=== PATIENT | female | born 1980 | race Hispanic/Latino ===

== ENCOUNTER 2016-10-04 16:05 | Emergency (ER) | payer OTHER, MEDICARE ==
[~2016-10-04] VITALS: Ht 157.5 cm; Wt 96.4 kg
[~2016-10-04 16:05] MED LIST: ALBU8.5H4 IH; DIPH50C PO; DULO30CA PO; HYDR-3740 PO; HYDR-4003 PO; LORA1TAB PO; METO25TA6 PO; NITR100 PO; NORT25CA PO; PROM25TA14 PO; SULF-239 PO; SULF1TAB35 PO; TOPI-59 PO; WARF2.5T82 PO; WARF5TAB7 PO; [UNRECOGNIZED DRUG - CODE] PO
[2016-10-04 16:14] VITALS: BP 98/76; PULSE 85; RESP 16; O2SAT 95
--- NOTE | 2016-10-04 17:01 | ED.REPORT ---
HPI-General Illness Date of Service Oct 04, 2016 ED Provider: Jose Kruse MD Pt is a 36 y.o. female with a hx of spina bifida, hydrocephalus, recurrent UTI's , and "one working kidney" who presents to the ED c/o right flank pain. Pt was diagnosed with a UTI at on 09/30/2016 and was prescribed Cipro. She states that her sx have not improved on Cipro and she has since developed right sided flank pain and a headache. She states that the headache has not improved with both prochlorperazine and promethazine, last dose around 0800. She reports associated diaphoresis, chills, nausea, and vomiting that has since resolved. Pt states she is unable to identify urinary symptoms as she self catheterizes. She denies fever. Pt is worried she may have an obstructed shunt because of headache. Nursing Notes Stated Complaint: POSS UTI Chief Complaint: General Complaint Nursing Notes Reviewed: Yes ([employer] not reconciled EMR indicates warfarin use) Allergies: Coded Allergies: codeine (Verified Allergy, Severe, 10/04/16) latex (Verified Allergy, Severe, ANAPHYLAXIS, 10/04/16) metoclopramide (Verified Allergy, Severe, 10/04/16) asenapine maleate (Verified Allergy, Unknown, 10/04/16) pregabalin (Verified Allergy, Unknown, 02/26/16) Uncoded Allergies: tegaderm (Allergy, Intermediate, 09/05/10) Scheduled Amoxicillin/Clav K 875-125 mg (Augmentin 875-125 mg) 1 Each Tablet 1 TABLET PO BID Duloxetine (Cymbalta) 30 Mg Capsule.dr 30 MG PO BID Metoprolol Tartrate (Metoprolol Tartrate) 25 Mg Tablet 12.5 MG PO BID Nitrofurantoin Monohyd/M-Cryst (MacroBid) 100 Mg Capsule 100 MG PO BID Nortriptyline (Nortriptyline) 25 Mg Capsule 50 MG PO HS Sulfamethoxazole/Trimeth 400-80 mg (Bactrim) 1 Each Tablet 1 TABLET PO BID Sulfamethoxazole/Trimeth 800-160 mg (Bactrim DS 800-160 mg) 1 Each Tablet 1 TABLET PO BID Topiramate (Topiramate) 25 Mg Tablet 25 MG PO DAILY Warfarin Sodium (Warfarin Sodium) 5 Mg Tablet 5 MG PO DAILY EXC FR&TUE Warfarin Sodium (Warfarin Sodium) 2.5 Mg Tablet 2.5 MG PO FRI&TUE Scheduled PRN Acetaminophen/Pyrilam/Pamabrom (Pamprin Multi-Symptom Tab) 1 Each Tablet 1 EACH PO PRN PRN PRN For Pain Albuterol HFA (Albuterol HFA) 8.5 Gm Hfa.aer.ad 2 PUFF IH Q4-6H PRN PRN For Wheezing Diphenhydramine Hcl (Benadryl) 25 Mg Capsule 25 MG PO Q4 PRN PRN For Itching Hydrocodone-Acetaminophen 10-325 mg (Hydrocodone-Acetaminophen 10-325 mg) 1 Each Tablet 1 TABLET PO Q6H PRN PRN For Pain Hydrocodone-Acetaminophen 5-325 mg (Hydrocodone-Acetaminophen 5-325 mg) 1 Each Tablet 1 EACH PO Q8 PRN PRN For Pain Lorazepam (Lorazepam) 1 Mg Tablet 0.5-1 MG PO TID PRN PRN For Anxiety Promethazine (Promethazine) 25 Mg Tablet 12.5-25 MG PO Q6 PRN PRN For Nausea Promethazine (Promethazine) 25 Mg Tablet 25 MG PO Q6H PRN PRN For Nausea oxyCODONE-Acetaminophen 5-325 mg (oxyCODONE-Acetaminophen 5-325 mg) 1 Each Tablet 1-2 TAB PO Q6H PRN PRN For Pain General Time Seen by MD: 16:59 Chief Complaint Other (Flank pain, right) Hx Obtained From: Patient Arrived By: Walk-in Sudden in Onset?: Yes Context of Onset: Recent antibiotic use Location: : Head Quality: Painful Severity: Current: Severe Recent Healthcare: Recent doctor visit Past Medical History Past Medical History borderline clotting disorder, 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) Recurrent UTIs Spina bifida, Hydrocephalus, Short gut syndrome, "one working kidney" -right Bowel obstruction PTSD Reports: Hypertension Reports: Migraines Past Surgical History BLOWER ROOM ATTENDANT shunts bilaterally Bowel surgery Foot surgery Reports: Appendectomy, , Cholecystectomy Smoking History Never Smoker Social History Alcohol Use: "Social" Drug Use: Denies drug use, THC Ambulatory Status Independent Review of Systems Full Review of Systems Constitutional: Reports: Chills, Denies: Fever GI: Reports: Nausea, Vomiting Skin: Reports Diaphoresis Neurologic: Reports: Headache Complete sys rev & neg: except as marked. Physical Exam Vital Signs Vital Signs Date Time Temp Pulse Resp B/P Pulse Ox O2 Delivery O2 Flow Rate FiO2 10/04/16 16:14 36.4 85 16 98/76 95 Room Air Initial VS: Reviewed, Vital signs normal Respiratory: Breath sounds normal, Clear to auscultation, No respiratory distress Cardiovascular: Regular rate & rhythm, Heart sounds normal, Intact distal pulses Extremities: Vascular intact, Neuro intact Skin: Warm, Dry, No cyanosis Neurologic: Alert, Oriented, Nonfocal Psychiatric: Mood/affect normal, Behavior normal, Normal thought content General/Constitutional: Awake, Alert, No acute distress, Well appearing, Well developed, Well hydrated, Well nourished Alertness: Negative: Somnolent Head / Eyes: Atraumatic, Normocephalic, PERRL No tenderness over shunt Abdomen: Atraumatic, Soft, Non-tender, No guarding, No rebound, No distention Back: Atraumatic, Inspection NL, No CVA tenderness Interpretation & Diagnostics Urine Culture (09/30/2016): Antibiotic RSLT #1 Amoxicillin/Clavulanic Acid S Cefazolin R Cefepime S Ceftriaxone S Cefuroxime I Cephalothin S Ciprofloxacin S Gentamicin S Imipenem S Nitrofurantoin S Tetracycline S Tobramycin S Trimethoprim/Sulfa S Lab Results Interpretation Result Diagram: 10/04/16 1725 10/04/16 1725 Test 10/04/16 17:25 White Blood Count 9.4th/mm3 (3.8-10.1) Red Blood Count 5.08mil/mm3 (3.90-5.20) Hemoglobin 15.1g/dL (12.0-15.6) Hematocrit 43.0% (35.0-46.0) Mean Corpuscular Volume 84.6fL (81-100) Mean Corpuscular Hemoglobin 29.7pg (27.0-35.0) Mean Corpuscular Hemoglobin Concent 35.1% (32.0-37.0) Red Cell Distribution Width 13.4% (12.3-15.4) Platelet Count 267bil/L (150-400) Neutrophils (%) (Auto) 54.3% (40-74) Lymphocytes (%) (Auto) 35.0% (14-46) Monocytes (%) (Auto) 7.2% (4-12) Eosinophils (%) (Auto) 2.6% (0-5) Basophils (%) (Auto) 0.7% (0-3) Prothrombin Time 20.4sec (8.1-12.5) Prothromb Time International Ratio 1.88ratio Sodium Level 138mEq/L (134-144) Potassium Level 3.8mEq/L (3.5-5.2) Chloride Level 107mEq/L (97-108) Carbon Dioxide Level 18mmol/L (18-29) Blood Urea Nitrogen 11mg/dL (6-20) Creatinine 0.90mg/dL (0.57-1.00) Estimat Glomerular Filtration Rate 103mL/min (>59) Glucose Level 94mg/dL (60-99) Calcium Level 8.6mg/dL (8.5-10.1) Total Bilirubin 0.8mg/dL (0.0-1.2) Aspartate Amino Transf (AST/SGOT) 16U/L (0-50) Alanine Aminotransferase (ALT/SGPT) 19U/L (0-32) Alkaline Phosphatase 76U/L (25-150) Total Protein 6.8g/dL (6.4-8.4) Albumin 3.8g/dL (3.4-5.0) Lab Results Interpretation: CBC normal next and CMP normal UA pos at [facility] INR near therapeutic CT Head Interpretation IMPRESSION: 1. No acute intracranial findings. 2. Stable appearance of the bilateral ventriculoperitoneal shunt catheters. Specifically, no new hydrocephalus. Dictated by: Nanci Padron M.D. on 10/04/2016 at 17:42 Approved by: Nanci Padron M.D. on 10/04/2016 at 17:42 Re-Eval/Medical Decision Med Decision/Clinical Course This is a 36-year-old female with complex past medical history of chronic pain who self caths and is at risk for urinary tract infection and was diagnosed with urinary tract infection at urgent care on 1231. She was started empirically on Cipro, but continues to have purulent appearing urine, and is developed some right flank pain. She has migraines, but it did not respond to her regular migraine, that she reports she is concerned that it could be a BLOWER ROOM ATTENDANT shunt problem, or simply related to the urine/kidney infection. The patient's awake alert-she does not clinically appear toxic. She is not febrile and she has normal vital signs. She has no focal deficits. She has not drowsy, she has not had vomiting or nausea. Even that she has a BLOWER ROOM ATTENDANT shunt, a headache-and was concerned about failure a CT was both indicated and obtained - and was negative. Blood work was normal. Urine culture results indicate positive Citrobacter, with culture indicating sensitivity to Cipro-for the patient's describing a clinical failure. Ceftriaxone IV to which the organism is sensitive. While she underwent labs- which are normal. The patient continued to have ongoing pain-and I was never able to completely relieve her pain. She is on high-dose opiates and an oral Dilaudid at home and I am hesitant provide much in terms of additional medication, but in the end I wrote a prescription for 10 Percocet for supplemental use. I am not finding indication patient requires emergent hospitalization or admission, I am not finding evidence of obstruction findings to indicate that CT imaging of the abdomen and pelvis are warranted at this time. The plan is to change the antibiotics she is switched to Augmentin which the organism is also sensitive. She is discharged in stable condition. Source of Hx: Old records Time of Eval: 20:30 Re-Evaluation/Progress Note: Pt rechecked. Pt continues to experience flank pain. Discussed imaging results and plan for discharge, pt understands and agrees with plan. Differential Diagnosis: Positive: Urinary tract infection, Negative: Abdominal pain, Allergies, Diabetes mellitus, Drug dependence, Influenza, Neutropenia Counseled Regarding: Diagnosis, Lab results, Need for follow-up, When/why to return to ED Discharge & Departure Primary Impression: UTI (urinary tract infection) Additional Impressions: Headache Anticoagulated on Coumadin Disposition: Home Discharge Condition All VS Reviewed: Yes Condition: Stable Additional Instructions: 1. CT scan of the brain did not suggest any problems with a BLOWER ROOM ATTENDANT shunt. The headache is indeed likely in part due to the urine/kidney infection 2. Urine culture from urgent care was positive for "Citrobacter" bacteria. It does appear that it should be sensitive to Cipro, but given you are still having such severe symptoms the plan is to change antibiotics. You received an IV dose of ceftriaxone. 3. Starting tomorrow take Augmentin 875 mg twice a day for 14 days. 4. Continue your regular medications. Referrals: Jose Day MD (PCP) Scribe Attestation Portions of this note were transcribed by Adrian Purcell. I, Dr. Kruse personally performed the history, physical exam and medical decision-making; I reviewed and confirmed the accuracy of the information in the transcribed note. Signed by: Master Knight, 10/04/2016 and 2030. copies to: Jose Day MD, Matthew F MD Oct 04, 2016 17:01 ADRIAN PURCELL Oct 04, 2016 17:19
[2016-10-04] MEDS ORDERED: Promethazine Inj 25 MG in Dextrose 5%-Pha MIX 50 ML IV ONE (17:10)
[2016-10-04] MEDS ORDERED: HYDROmorphone 1 mg/mL Inj IVPUSH ONE ×2 (17:10→18:45)
[2016-10-04 17:39] LABS: BASOPHILS % (AUTO) 0.7 % (0-3); EOSINOPHILS % (AUTO) 2.6 % (0-5); MONOCYTES % (AUTO) 7.2 % (4-12); Mean Corpuscular Hemoglobin 29.7 pg (27.0-35.0); Mean Corpuscular Volume 84.6 fL (81-100); NEUTROPHILS % (AUTO) 54.3 % (40-74); Platelet Count 267 bil/L (150-400)
--- NOTE | 2016-10-04 17:44 | DRSVH ---
PROCEDURE: CT BRAIN WITHOUT CONTRAST ([id number]) INDICATIONS: [employer]MID [employer] ADMINISTRATOR shunt TECHNIQUE: Noncontrast 4.5 mm thick angled axial sections acquired from the foramen magnum to the vertex, with c oronal reformats. COMPARISON: None. FINDINGS: Image quality: Excellent. CSF spaces: Basal cisterns are patent. No extra-axial fluid collections. Ventricles are normal in size and shape. Bilateral ventriculoperitoneal shunt catheters are unchanged when compared with the study dated 07/12/16. No new hydrocephalus. Brain: No midline shift. No intracranial masses or hemorrhage. Brown-white matter interface is norm al. Skull and face: Calvarium and visualized facial bones are intact, without suspicious lesions. Sinuses: Visualized sinuses and mastoids are clear. IMPRESSION: 1. No acute intracranial findings. 2. Stable appearance of the bilateral ventriculoperitoneal shunt catheters. Specifically, no new hydr ocephalus. Dictated by: Nanci Padron M.D. on 10/04/2016 at 17:42 Approved by: Nanci Padron M.D. on 10/04/2016 at 17:42
[2016-10-04] MEDS ORDERED: cefTRIAXone Inj 2,000 MG in IV Premix 1 EACH IV ONE (17:45)
[2016-10-04] MEDS ORDERED: AMOX-366 PO (20:27)
[2016-10-04] MEDS ORDERED: OXYC1TAB24 PO (20:27)
[2016-10-04] MEDS ORDERED: oxyCODONE-Acetamin 5-325 mg Tablet PO ONE (20:30)
[2016-10-04 20:37] LABS: INR 1.88 ratio
[2016-10-04 21:10] VITALS: BP 112/80; PULSE 99; RESP 24; O2SAT 98
== END 2016-10-04 21:13 | disposition home or self-care (01) ==
LOC: SED 16:05
DX: N39.0 Urinary tract infection, site not specified (principal); R51 Headache; R10.9 Unspecified abdominal pain; R61 Generalized hyperhidrosis; R68.83 Chills (without fever); R11.2 Nausea with vomiting, unspecified; Q05.9 Spina bifida, unspecified; I10 Essential (primary) hypertension; Z88.5 Allergy status to narcotic agent; Z88.8 Allergy status to other drugs, medicaments and biological substances; Z91.040 Latex allergy status; Z87.440 Personal history of urinary (tract) infections; Z79.01 Long term (current) use of anticoagulants
CPT/HCPCS: 36415; 70450; 80053; 85025; 85610; 96365; 96375; 96376; 99285; J0696; J1170; J1200

== ENCOUNTER 2017-05-21 20:35 | Emergency (ER) | payer OTHER, MEDICARE ==
[~2017-05-21] VITALS: Ht 157.5 cm; Wt 96.4 kg
[~2017-05-21 20:35] MED LIST changes: +AMOX-366 PO; +OXYC1TAB24 PO
[2017-05-21 20:39] VITALS: BP 110/75; PULSE 89; RESP 16; O2SAT 98
--- NOTE | 2017-05-21 21:38 | ED.REPORT ---
HPI-Headache Date of Service May 21, 2017 ED Provider: Dr. Abreu Pt is a 36 year old female with a history of MANAGER POWER shunts bilaterally, who presents to the ED with concerns for a headache, dizziness, and blurred vision over the last couple of days. She reports that this has happened once in the past, where her shunt was obstructed. She reports that at that time, she had her shunt replaced. She states that she has been nauseated and vomiting all day today. She is currently on Warfarin for a hx of DVTs Nursing Notes Stated Complaint: POSS SHUNT OBSTRUCTION Chief Complaint: Headache Nursing Notes Reviewed: Yes Allergies: Coded Allergies: codeine (Verified Allergy, Severe, 05/21/17) latex (Verified Allergy, Severe, ANAPHYLAXIS, 05/21/17) metoclopramide (Verified Allergy, Severe, 05/21/17) asenapine maleate (Verified Allergy, Unknown, 05/21/17) pregabalin (Verified Allergy, Unknown, 05/21/17) Uncoded Allergies: tegaderm (Allergy, Intermediate, 09/05/10) Scheduled Amoxicillin/Clav K 875-125 mg (Augmentin 875-125 mg) 1 Each Tablet 1 TABLET PO BID Duloxetine (Cymbalta) 30 Mg Capsule.dr 30 MG PO BID Metoprolol Tartrate (Metoprolol Tartrate) 25 Mg Tablet 12.5 MG PO BID Nitrofurantoin Monohyd/M-Cryst (MacroBid) 100 Mg Capsule 100 MG PO BID Nortriptyline (Nortriptyline) 25 Mg Capsule 50 MG PO HS Sulfamethoxazole/Trimeth 400-80 mg (Bactrim) 1 Each Tablet 1 TABLET PO BID Sulfamethoxazole/Trimeth 800-160 mg (Bactrim DS 800-160 mg) 1 Each Tablet 1 TABLET PO BID Topiramate (Topiramate) 25 Mg Tablet 25 MG PO DAILY Warfarin Sodium (Warfarin Sodium) 5 Mg Tablet 5 MG PO DAILY EXC &TUE Warfarin Sodium (Warfarin Sodium) 2.5 Mg Tablet 2.5 MG PO FRI&TUE Scheduled PRN Acetaminophen/Pyrilam/Pamabrom (Pamprin Multi-Symptom Tab) 1 Each Tablet 1 EACH PO PRN PRN PRN For Pain Albuterol HFA (Albuterol HFA) 8.5 Gm Hfa.aer.ad 2 PUFF IH Q4-6H PRN PRN For Wheezing Diphenhydramine Hcl (Benadryl) 25 Mg Capsule 25 MG PO Q4 PRN PRN For Itching Hydrocodone-Acetaminophen 10-325 mg (Hydrocodone-Acetaminophen 10-325 mg) 1 Each Tablet 1 TABLET PO Q6H PRN PRN For Pain Hydrocodone-Acetaminophen 5-325 mg (Hydrocodone-Acetaminophen 5-325 mg) 1 Each Tablet 1 EACH PO Q8 PRN PRN For Pain Lorazepam (Lorazepam) 1 Mg Tablet 0.5-1 MG PO TID PRN PRN For Anxiety Promethazine (Promethazine) 25 Mg Tablet 12.5-25 MG PO Q6 PRN PRN For Nausea Promethazine (Promethazine) 25 Mg Tablet 25 MG PO Q6H PRN PRN For Nausea oxyCODONE-Acetaminophen 5-325 mg (oxyCODONE-Acetaminophen 5-325 mg) 1 Each Tablet 1-2 TAB PO Q6H PRN PRN For Pain General Time Seen by MD: 21:36 Chief Complaint Headache Hx Obtained From: Patient Arrived By: Walk-in Sudden in Onset?: Yes Onset Occurred: 9 - 12 hours ago Symptom Duration: Since onset Location: : Generalized Quality: Painful Severity: Current: Moderate Severity: Maximum: Severe Recent Healthcare: Recent doctor visit, Recent hospitalization Similar Sx Previous: Yes Past Medical History Past Medical History borderline clotting disorder, 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) Recurrent UTIs Spina bifida, Hydrocephalus, Short gut syndrome, "one working kidney" -right Bowel obstruction PTSD Reports: Hypertension Reports: Migraines Past Surgical History MANAGER POWER shunts bilaterally Bowel surgery Foot surgery Reports: Appendectomy, , Cholecystectomy Smoking History Never Smoker Social History Alcohol Use: "Social" Drug Use: Denies drug use, THC Ambulatory Status Independent Review of Systems Constitutional: Reports: Chills, Fever, Weakness - generalized, Denies: Malaise GI: Reports: Nausea, Vomiting, Denies: Abdominal pain, Constipation, Diarrhea Musculoskeletal: Denies: Back pain, Extremity pain, Neck pain Neurologic: Reports: Dizziness, Headache, Denies: Change LOC, Seizure, Syncope, Weakness Complete sys rev & neg: except as marked. Physical Exam Initial Vital Signs Vital Signs (First) Date Time Temp Pulse Resp B/P Pulse Ox O2 Delivery O2 Flow Rate FiO2 05/21/17 20:39 36.2 89 16 110/75 98 Room Air Initial VS: Reviewed ENT: Mucous membranes moist, Conjunctiva normal, No scleral icterus Respiratory: Breath sounds normal, Clear to auscultation, No respiratory distress Cardiovascular: Regular rate & rhythm, Heart sounds normal, Intact distal pulses Abdomen / GI: Soft, Non-tender, No guarding, No rebound, No distention Skin: Warm, Dry, No cyanosis General/Constitutional: Awake, Alert Distress / Hydration: Positive: Distress moderate Appearance / Presentation: Positive: Uncomfortable Head / Eyes: Atraumatic, Normocephalic Palpable bilateral shunts Neck: Atraumatic, Supple, No meningismus Neurologic: Oriented X3, Speech NL, No motor deficits, No sensory deficits, CN II - XII intact Interpretation & Diagnostics Lab Results Interpretation Result Diagram: 05/21/17 2251 05/21/17 2251 Test 05/21/17 22:51 05/21/17 22:52 White Blood Count 8.3th/mm3 (3.8-10.1) Red Blood Count 5.45mil/mm3 (3.90-5.20) Hemoglobin 15.9g/dL (12.0-15.6) Hematocrit 46.0% (35.0-46.0) Mean Corpuscular Volume 84.4fL (81-100) Mean Corpuscular Hemoglobin 29.2pg (27.0-35.0) Mean Corpuscular Hemoglobin Concent 34.6% (32.0-37.0) Red Cell Distribution Width 13.3% (12.3-15.4) Platelet Count 246bil/L (150-400) Neutrophils (%) (Auto) 44.8% (40-74) Lymphocytes (%) (Auto) 40.4% (14-46) Monocytes (%) (Auto) 11.1% (4-12) Eosinophils (%) (Auto) 2.5% (0-5) Basophils (%) (Auto) 1.1% (0-3) Prothrombin Time 10.3sec (8.1-12.5) Prothromb Time International Ratio 0.96ratio Sodium Level 139mEq/L (134-144) Potassium Level 4.3mEq/L (3.5-5.2) Chloride Level 104mEq/L (97-108) Carbon Dioxide Level 19mmol/L (18-29) Blood Urea Nitrogen 13mg/dL (6-20) Creatinine 1.06mg/dL (0.57-1.00) Estimat Glomerular Filtration Rate 85mL/min (>59) Glucose Level 98mg/dL (60-99) Calcium Level 9.8mg/dL (8.5-10.1) Total Bilirubin 1.0mg/dL (0.0-1.2) Aspartate Amino Transf (AST/SGOT) 21U/L (0-50) Alanine Aminotransferase (ALT/SGPT) 25U/L (0-32) Alkaline Phosphatase 78U/L (25-150) Total Protein 7.5g/dL (6.4-8.4) Albumin 4.4g/dL (3.4-5.0) Hold Oneil Top Tube Received (Received) CT Head Interpretation Conclusion: Multiple bilateral shunts, 2 on the right and one on the left. One scalp reservoir on each side, one of the right shunts is presumably detached, presumably the more superior entering right shunt without a corresponding scalp reservoir. No micki hydrocephalus but the ventricles are asymmetric, mildly larger on the right. 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 No hemorrhage, edema or midline shift I would be happy to compare to a prior exam if one is available Addendum: Prior exam from October 04, 2016 was received. The right lateral ventricle is large, the body of the right lateral ventricle was only about 6 mm at that time, now 1.1cm, and the right temporal horn was slitlike, now about 7.4 mm. Possibly a mild asymmetric right hydrocephalus Study: Head CT no contrast Interpretation / Wet Read by: Interpret - Radiologist Re-Eval/Medical Decision Med Decision/Clinical Course This is a very pleasant 36-year-old female who presents complaining that she has headache, vomiting blurred vision. For 2 days she has developed gradual onset headache with associated symptoms of nausea and vomiting. She states that her symptoms are very reminiscent of prior ventriculoperitoneal shunt failure. Her last shunt failure and revision was 14 years ago at [facility] in [place]. She denies fever. She denies neck stiffness. Currently she does not have any vision loss. On examination her vitals were normal and stable. Her neck was supple. I can feel the shunts in her neck and they feel normal to me. I could not appreciate papilledema. Her pupils are 2 mm equal and reactive. Cardiac was regular. Lungs are clear. GCS 15. Vital stable. CT scan is highly suspicious for the right shunt failing. She has mild right- sided hydrocephalus and her ventricles are far more prominent on the right than compared to a CT scan back in October. Assessment: MANAGER POWER shunt failure with mild hydrocephalus. Plan: We treated her symptomatically. She remained hemodynamically stable. I consulted with Dr. Ortiz at [facility]. We will transfer her via ambulance as soon as possible. Source of Hx: Old records Re-Evaluation/Progress : Time of Eval: 22:35 Re-Evaluation/Progress Note: Pt is rechecked and informed of her CT scan results and the plan to refer her to a neurologist. She understands and agrees, all questions are addressed. Consultation : Referral / Consult Name: [facility] Returned at: 23:26 Frankfurter Inspector: Will see patient, Agrees with plan Note: Accepts transfer. Spoke with Dr. Ortiz Counseled Regarding: Diagnosis, Lab results, Need for transfer Discharge & Departure Impression: Primary Impression: Shunt malfunction Encounter type: initial encounter Qualified Code: T85.618A - Breakdown ( mechanical) of other specified internal prosthetic devices, implants and grafts , initial encounter Additional Impression: Hydrocephalus Disposition: Transfer, Acute Care Facility Receiving Hospital: [facility]. Spoke with Dr. Ortiz Transfer Accepted at: 23:25 Transfer Reason: Higher level of care Spoke with: Specialty physician Patient Status: Stable Patient Informed: Yes Discharge Condition All VS Reviewed: Yes Condition: Stable Referrals: Jose Day MD (PCP) Crit Care Except Billable Proc Time Spent: 30-74 minutes (60 mins) Services Performed: Patient management by me, Time spent at bedside, Reviewing test results, Reviewing imaging, Discussing patient care, Documentation in record, Time with fam/surrogate Scribe Attestation Portions of this note were transcribed by Paige Gaytan. I, Dr. Abreu personally performed the history, physical exam and medical decision-making; I reviewed and confirmed the accuracy of the information in the transcribed note. Signed by: Master Contreras, 05/21/2017 1466 copies to: Jose Day MD, Todd P DO May 21, 2017 21:38 RORY GAYTAN May 21, 2017 21:49
[2017-05-21] MEDS ORDERED: HYDROmorphone 1 mg/mL Inj IM ONE (21:50)
[2017-05-21 22:54] LABS: BASOPHILS % (AUTO) 1.1 % (0-3); EOSINOPHILS % (AUTO) 2.5 % (0-5); MONOCYTES % (AUTO) 11.1 % (4-12); Mean Corpuscular Hemoglobin 29.2 pg (27.0-35.0); Mean Corpuscular Volume 84.4 fL (81-100); NEUTROPHILS % (AUTO) 44.8 % (40-74); Platelet Count 246 bil/L (150-400)
[2017-05-21] MEDS ORDERED: Promethazine Inj 12.5 MG in Dextrose 5%-Pha MIX 50 ML IV ONE (23:05)
[2017-05-21] MEDS ORDERED: HYDROmorphone 0.5 mg/0.5 mL iSecure Syringe IVPUSH PRN (23:05)
[2017-05-21 23:09] LABS: INR 0.96 ratio
[2017-05-21 23:52] VITALS: BP 110/75; PULSE 101; RESP 16; O2SAT 97
--- NOTE | 2017-05-22 08:22 | DRSVH ---
PROCEDURE: CT BRAIN WITHOUT CONTRAST ([id number]) INDICATIONS: headache, vomiting, blurred vision, TECHNIQUE: Noncontrast 4.5 mm thick angled axial sections acquired from the foramen magnum to the vertex, with c oronal reformats. COMPARISON: [facility], CT, CT BRAIN WO CON, 10/04/2016, 17:24. [facility], CT, CT BRAIN WO CON, 07/12/2016, 19:09. [facility], CT, CT BRAIN WO CON, 09/17/2015, 8:2 1. [facility], CT, BRAIN W/O CONTRAST, 01/03/2015, 21:09. FINDINGS: Image quality: Excellent. CSF spaces: Basal cisterns are patent. No extra-axial fluid collections. Ventricles are normal in size and shape. Stable bilateral ventriculoperitoneal shunts with 2 shunts on the right only one of which has a scalp reservoir and a single shunts on the left. Tips are within the lateral ventricles. The right lateral ventricle is dilated in its posterior and temporal horns relative to the previous s tudies. The left ventricle is completely decompressed unchanged over the previous examinations. Brain: No midline shift. No intracranial masses or hemorrhage. Brown-white matter interface is norm al. Skull and face: Calvarium and visualized facial bones are intact, without suspicious lesions. Sinuses: Visualized sinuses and mastoids are clear. IMPRESSION: 1. There is new mild dilatation of the right lateral ventricle relative to previous studies. Stable b ilateral ventriculoperitoneal shunts. 2. There are no discrepancies with the preliminary report. Dictated by: Janes Palumbo M.D. on 05/22/2017 at 8:14 Approved by: Janes Palumbo M.D. on 05/22/2017 at 8:21
--- NOTE | 2017-05-22 09:51 | DRSVH ---
PROCEDURE: X-RAY SHUNT SERIES W/O INJECTION INDICATIONS: headache, vomiting, COMPARISON: [facility], CR, XR SHUNT SERIES WO INJ, 09/17/2015, 9:04. Formerly [facility] pital, CT, CT BRAIN WO CON, 10/04/2016, 17:24. [facility], CT, CT BRAIN WO CON, 05/21/2017 , 21:56. [facility], CR, XR SHUNT SERIES WO INJ, 07/12/2016, 19:05. FINDINGS: With reference to the comparison CT scans and plain film shunt series, no definite change is identified, no evidence for shunt displacement or fracture of shunt catheter is found. Multiple s simon catheters can be seen from the neck inferiorly. These extend to overlie the right and left abdo men as was previously the case. There is short nondifferential air fluid levels seen on the upright examination likely within the col on, otherwise the bowel gas pattern is normal. No pneumatosis or bowel wall thickening. No pneumope ritoneum. IMPRESSION: No exchange trouble shooter time that would indicate source of current symptoms involving the ventriculoperitoneal shunts. [place]ie air fluid levels noted throughout the bowel likely within the colon which could be related to gastroenteritis. No obstruction is identified. Dictated by: Mychal Bravo RRA Interpreted: Gopi Branham MD on 05/22/2017 at 8:22 Approved by: Gopi Branham M.D. on 05/22/2017 at 9:49
== END 2017-05-21 23:54 | disposition short-term general hospital (02) ==
LOC: SED 20:35
DX: T85.01XA Breakdown (mechanical) of ventricular intracranial (communicating) shunt, initial encounter (principal); G91.9 Hydrocephalus, unspecified; Y83.1 Surgical operation with implant of artificial internal device as the cause of abnormal reaction of the patient, or of later complication, without mention of misadventure at the time of the procedure; Y92.9 Unspecified place or not applicable; Y99.9 Unspecified external cause status; I10 Essential (primary) hypertension; F43.10 Post-traumatic stress disorder, unspecified; Z79.01 Long term (current) use of anticoagulants
CPT/HCPCS: 36415; 70250; 70450; 71010; 72020; 74000; 80053; 85025; 85610; 96372; 96374; 96375; 99291; J1170; J1200; J2550

== ENCOUNTER 2017-06-01 18:32 | Emergency (ER) | payer OTHER, MEDICARE ==
[~2017-06-01] VITALS: Ht 157.5 cm; Wt 95.4 kg
[2017-06-01 18:42] VITALS: BP 130/86; PULSE 73; RESP 16; O2SAT 100
--- NOTE | 2017-06-01 18:56 | ED.REPORT ---
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 She c/o associated headache and diaphoresis. She denies blurred vision, vomiting, and fever. Pt reports that she had a shunt revision last week due to a shunt obstruction. She recently noticed a hard area on her abdomen and pain where the tubing ends. The pt has experienced similar symptoms previously reports that her last shunt failure and revision was 14 years ago at [facility] in [place]. The pt presented to the ED on 05/21/17 with similar symptoms and she was transferred to [facility] with a diagnosis of shunt malfunction and hydrocephalus. Nursing Notes Stated Complaint: POSSIBLE COMPLICATION SHUNT REVISION Chief Complaint: General Complaint Nursing Notes Reviewed: Yes Allergies: Coded Allergies: codeine (Verified Allergy, Severe, 05/21/17) latex (Verified Allergy, Severe, ANAPHYLAXIS, 05/21/17) metoclopramide (Verified Allergy, Severe, 05/21/17) asenapine maleate (Verified Allergy, Unknown, 05/21/17) pregabalin (Verified Allergy, Unknown, 05/21/17) Uncoded Allergies: tegaderm (Allergy, Intermediate, 09/05/10) Scheduled Amoxicillin/Clav K 875-125 mg (Augmentin 875-125 mg) 1 Each Tablet 1 TABLET PO BID Duloxetine (Cymbalta) 30 Mg Capsule.dr 30 MG PO BID Metoprolol Tartrate (Metoprolol Tartrate) 25 Mg Tablet 12.5 MG PO BID Nitrofurantoin Monohyd/M-Cryst (MacroBid) 100 Mg Capsule 100 MG PO BID Nortriptyline (Nortriptyline) 25 Mg Capsule 50 MG PO HS Sulfamethoxazole/Trimeth 400-80 mg (Bactrim) 1 Each Tablet 1 TABLET PO BID Sulfamethoxazole/Trimeth 800-160 mg (Bactrim DS 800-160 mg) 1 Each Tablet 1 TABLET PO BID Topiramate (Topiramate) 25 Mg Tablet 25 MG PO DAILY Warfarin Sodium (Warfarin Sodium) 5 Mg Tablet 5 MG PO DAILY EXC FR&TUE Warfarin Sodium (Warfarin Sodium) 2.5 Mg Tablet 2.5 MG PO FRI&TUE Scheduled PRN Acetaminophen/Pyrilam/Pamabrom (Pamprin Multi-Symptom Tab) 1 Each Tablet 1 EACH PO PRN PRN PRN For Pain Albuterol HFA (Albuterol HFA) 8.5 Gm Hfa.aer.ad 2 PUFF IH Q4-6H PRN PRN For Wheezing Diphenhydramine Hcl (Benadryl) 25 Mg Capsule 25 MG PO Q4 PRN PRN For Itching Hydrocodone-Acetaminophen 10-325 mg (Hydrocodone-Acetaminophen 10-325 mg) 1 Each Tablet 1 TABLET PO Q6H PRN PRN For Pain Hydrocodone-Acetaminophen 5-325 mg (Hydrocodone-Acetaminophen 5-325 mg) 1 Each Tablet 1 EACH PO Q8 PRN PRN For Pain Lorazepam (Lorazepam) 1 Mg Tablet 0.5-1 MG PO TID PRN PRN For Anxiety Promethazine (Promethazine) 25 Mg Tablet 12.5-25 MG PO Q6 PRN PRN For Nausea Promethazine (Promethazine) 25 Mg Tablet 25 MG PO Q6H PRN PRN For Nausea oxyCODONE-Acetaminophen 5-325 mg (oxyCODONE-Acetaminophen 5-325 mg) 1 Each Tablet 1-2 TAB PO Q6H PRN PRN For Pain General Time Seen by MD: 18:56 Chief Complaint Abdominal pain Hx Obtained From: Patient Arrived By: Walk-in Sudden in Onset?: No Onset Occurred: Onset unknown Symptom Duration: Since onset Location: : Abdomen Quality: Painful Radiation: : Does not radiate Severity: Current: Moderate Severity: Maximum: Moderate Recent Healthcare: Recent doctor visit, Recent hospitalization Similar Sx Previous: Yes Past Medical History Past Medical History borderline clotting disorder, 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) Spina bifida, Hydrocephalus 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 Bowel obstruction PTSD Reports: Hypertension Reports: Migraines, Urinary tract infection (recurrent) Past Surgical History CELL BIOLOGIST shunts bilaterally Bowel surgery Foot surgery Shunt revision Reports: Appendectomy, , Cholecystectomy Smoking History Never Smoker Social History Alcohol Use: "Social" Drug Use: Denies drug use, THC Ambulatory Status Independent Review of Systems Full Review of Systems Constitutional: Denies: Fever Eyes: Denies: Blurred bilateral, Blurred left, Blurred right GI: Reports: Abdominal pain, Denies: Vomiting Skin: Reports Diaphoresis Neurologic: Reports: Headache Complete sys rev & neg: except as marked. Physical Exam Vital Signs Vital Signs Date Time Temp Pulse Resp B/P Pulse Ox O2 Delivery O2 Flow Rate FiO2 06/01/17 21:29 80 18 98/49 95 Room Air 06/01/17 18:42 36.7 73 16 130/86 100 Room Air Initial VS: Reviewed Neck: Supple, Full range of motion Respiratory: Breath sounds normal, Clear to auscultation, No respiratory distress Cardiovascular: Regular rate & rhythm, Heart sounds normal, Intact distal pulses Extremities: Vascular intact, Neuro intact Skin: Warm, Dry, No cyanosis Neurologic: Alert, Oriented, Nonfocal Psychiatric: Mood/affect normal, Behavior normal General/Constitutional: Awake, Alert, Well appearing Head / Eyes: Atraumatic, Normocephalic, PERRL No papilledema ABDOMEN: 3 inch incision with mild erythema and swelling. Interpretation & Diagnostics Lab Results Interpretation Result Diagram: 06/01/17194406/01/171944 Test 06/01/17 19:45 White Blood Count 8.2th/mm3 (3.8-10.1) Red Blood Count 5.24mil/mm3 (3.90-5.20) Hemoglobin 15.2g/dL (12.0-15.6) Hematocrit 45.1% (35.0-46.0) Mean Corpuscular Volume 86.1fL (81-100) Mean Corpuscular Hemoglobin 29.0pg (27.0-35.0) Mean Corpuscular Hemoglobin Concent 33.7% (32.0-37.0) Red Cell Distribution Width 13.4% (12.3-15.4) Platelet Count 301bil/L (150-400) Neutrophils (%) (Auto) 47.9% (40-74) Lymphocytes (%) (Auto) 36.9% (14-46) Monocytes (%) (Auto) 10.5% (4-12) Eosinophils (%) (Auto) 3.7% (0-5) Basophils (%) (Auto) 0.9% (0-3) Prothrombin Time 10.0sec (8.1-12.5) Prothromb Time International Ratio 0.94ratio Sodium Level 137mEq/L (134-144) Potassium Level 5.4mEq/L (3.5-5.2) Chloride Level 102mEq/L (97-108) Carbon Dioxide Level 19mmol/L (18-29) Blood Urea Nitrogen 11mg/dL (6-20) Creatinine 0.79mg/dL (0.57-1.00) Estimat Glomerular Filtration Rate 119mL/min (>59) Glucose Level 96mg/dL (60-99) Calcium Level 9.1mg/dL (8.5-10.1) Total Bilirubin 0.5mg/dL (0.0-1.2) Aspartate Amino Transf (AST/SGOT) 35U/L (0-50) Alanine Aminotransferase (ALT/SGPT) 27U/L (0-32) Alkaline Phosphatase 94U/L (25-150) Total Protein 7.5g/dL (6.4-8.4) Albumin 3.8g/dL (3.4-5.0) X-Ray Chest Interpretation Chest Xray Interpretation: Shunt in right abdomen is coiled, but there is no fracture in the shunt. View: Portable, 1 view Interpretation / Wet Read by: Wet read ED physician CT Head Interpretation IMPRESSION: 1. Bilateral ventricular shunts with interval decrease in size of the right lateral ventricle as above. Dictated by: Gilma Leon M.D. on 06/01/2017 at 19:38 Study: Head CT no contrast Interpretation / Wet Read by: Interpret - Radiologist Re-Eval/Medical Decision Med Decision/Clinical Course CT scan shows the shunt to be in good placement and expected drainage of the lateral ventricle. No evidence of hydrocephalus, hemorrhage or postoperative complications. The x-ray shunt series shows the CELL BIOLOGIST shunt to be coiled in her abdominal cavity. I consulted with the neurosurgeon who placed the shunt. Evidently she had rather impressive adhesions was difficult for them to find a pocket to put the tip of the shunt in. Perhaps this is why there is some fluid tracking up towards the shunt this is semi-expected based on how difficult her shunt placement was. No signs of shunt failure. The skin is a little erythematous over her incision. After talking over the neurosurgeon we have opted to place her on twice daily doxycycline. She is to keep an accurate log of her headaches and she will follow-up with her neurologist and her neurosurgical appointment as well. Her pain was adequately treated. Her labs are reassuring. No evidence of meningitis. Further diagnostics felt to be unnecessary. Source of Hx: Old records Time of Eval: 20:30 Re-Evaluation/Progress Note: Pt rechecked. Informed pt of results, treatment, and plan to consult with neurosurgeon. All questions addressed. Time of Eval: 21:31 Re-Evaluation/Progress Note: Pt rechecked. Informed pt of plan for discharge. Pt understands and agrees with plan for discharge. F/U instructions and RTER warnings given. All questions addressed. Consultation : Consulted With: Neurosurgery Call Returned at: 21:06 Shipboard Intelligence Analyst: Agrees with eval, Agrees with plan Note: Consulted [facility] neurosurgeon who operated on pt. Discussed pt's case. Recommends follow-up. Counseled Regarding: Diagnosis, Lab results, Need for follow-up, When/why to return to ED Discharge & Departure Primary Impression: Head ache Headache type: unspecified Headache chronicity pattern: acute headache Intractability: not intractable Qualified Code: R51 - Headache Additional Impression: Wound infection after surgery Encounter type: initial encounter Qualified Code: T81.4XXA - Infection following a procedure, initial encounter Disposition: Home Discharge Condition All VS Reviewed: Yes Condition: Stable Patient Instructions: Acute Headache (ED), Cellulitis (DC) Additional Instructions: The [facility] neurosurgeon who placed your shunt has reviewed the CT scans and x-rays. Things looked to be doing well. No signs of shunt failure. We will place you on doxycycline twice daily for 5 days for possible skin infection. Your neurosurgeon would like you to keep an accurate log of your headaches. Write down if your headaches are worse when you wake up in the morning or worse after you've been up and about on your feet. The valve and is shunt can be adjusted based upon your symptomatology. Set up a follow-up with Dr. christianson. Do not drive tonight. Keep your neurosurgical follow-up as well. Take doxycycline twice daily for 5 days. Avoid direct sunlight while taking the doxycycline. I am glad that your shunt revision seems to function well. Do not hesitate to return if any problems or any new or worrisome symptoms. Referrals: Jose Day MD (PCP) Jesus Christianson MD Scribe Attestation Portions of this note were transcribed by Stephanie Urbano. I, Dr. Abreu personally performed the history, physical exam and medical decision-making; I reviewed and confirmed the accuracy of the information in the transcribed note. Signed by : Master Lane, 06/01/17. copies to: Jose Day MD; Jesus Christianson MD, Todd P DO Jun 01, 2017 18:56 Stephanie Alejo Jun 01, 2017 19:01
[2017-06-01] MEDS ORDERED: 0.9% Sodium Chloride 1,000 ML IV ONE (19:10)
--- NOTE | 2017-06-01 19:43 | DRSVH ---
PROCEDURE: CT BRAIN WITHOUT CONTRAST ([id number]) INDICATIONS: recent shunt revision, now headaches and swelling TECHNIQUE: Noncontrast 4.5 mm thick angled axial sections acquired from the foramen magnum to the vertex, with c oronal reformats. COMPARISON: [facility], CT, CT BRAIN WO CON, 07/12/2016, 19:09. [facility], CT, CT BRAIN WO CON, 05/21/2017, 21:56. FINDINGS: Image quality: Excellent. CSF spaces: Basal cisterns are patent. No extra-axial fluid collections. Stable appearance of bila teral ventricular shunts with posterior parietal approaches are again noted. The right shunt appears to terminate within the posterior horn of the right lateral ventricle. The posterior left shunt termi nates near the third ventricle. In the interval since the prior exam, there has been decreased size o f the right lateral ventricle, most notably within the posterior temporal occipital horn. Left latera l, third and fourth ventricles appear unchanged. Brain: No midline shift. No intracranial masses or hemorrhage. Brown-white matter interface is norm al. Skull and face: Calvarium and visualized facial bones are intact, without suspicious lesions. Sinuses: Visualized sinuses and mastoids are clear. IMPRESSION: 1. Bilateral ventricular shunts with interval decrease in size of the right lateral ventricle as abov e. Dictated by: Gilma Leon M.D. on 06/01/2017 at 19:38 Approved by: Gilma Leon M.D. on 06/01/2017 at 19:41
[2017-06-01] MEDS: Ondansetron 2 mg/mL 2 mL Inj IVPUSH PRN ×2 (19:46→20:26)
[2017-06-01] MEDS: HYDROmorphone 0.5 mg/0.5 mL iSecure Syringe IVPUSH PRN ×2 (19:46→20:26)
--- NOTE | 2017-06-01 19:46 | DRSVH ---
PROCEDURE: X-RAY SHUNT SERIES W/O INJECTION INDICATIONS: recent revision, swelling at abd site, headache COMPARISON: [facility], CR, XR SHUNT SERIES WO INJ, 05/21/2017, 22:08. FINDINGS: Bilateral ventriculoperitoneal shunts are present. The right shunt demonstrates a slightly coiled appearance within the pelvis, new compared to prior exam. There are minimal air-fluid levels identified within the small bowel. Cholecystectomy clips are present. Lungs are clear. IMPRESSION: 1. Bilateral ventriculoperitoneal shunts with a mild appearance of coiling of the right shunt as abov e. 2. Minimal air-fluid levels within the small bowel which could be sales representative rural power of ileus. It is note d that these were also present on prior exam. Dictated by: Gilma Leon M.D. on 06/01/2017 at 19:42 Approved by: Gilma Leon M.D. on 06/01/2017 at 19:44
[2017-06-01 19:50] LABS: BASOPHILS % (AUTO) 0.9 % (0-3); EOSINOPHILS % (AUTO) 3.7 % (0-5); MONOCYTES % (AUTO) 10.5 % (4-12); Mean Corpuscular Volume 86.1 fL (81-100); NEUTROPHILS % (AUTO) 47.9 % (40-74); Platelet Count 301 bil/L (150-400)
[2017-06-01 20:12] LABS: INR 0.94 ratio
[2017-06-01] MEDS ORDERED: HYDROmorphone 1 mg/mL Inj IVPUSH ONE (20:35)
[2017-06-01 21:29] VITALS: BP 98/49; PULSE 80; RESP 18; O2SAT 95
[2017-06-01] MEDS ORDERED: diphenhydrAMINE 25 mg Capsule PO ONE (21:30)
== END 2017-06-01 22:01 | disposition home or self-care (01) ==
LOC: SED 18:32
DX: T81.4XXA Infection following a procedure, initial encounter (principal); R51 Headache; R10.31 Right lower quadrant pain; Y84.9 Medical procedure, unspecified as the cause of abnormal reaction of the patient, or of later complication, without mention of misadventure at the time of the procedure; Y93.89 Activity, other specified; Y99.8 Other external cause status; Y92.89 Other specified places as the place of occurrence of the external cause; I10 Essential (primary) hypertension; Z86.718 Personal history of other venous thrombosis and embolism; Z90.49 Acquired absence of other specified parts of digestive tract; Z79.51 Long term (current) use of inhaled steroids; Z79.01 Long term (current) use of anticoagulants; Z88.5 Allergy status to narcotic agent; Z88.8 Allergy status to other drugs, medicaments and biological substances
CPT/HCPCS: 36415; 70250; 70450; 71010; 72020; 74000; 80053; 85025; 85610; 96374; 96375; 96376; 99285; J1170; J2405; J7030